=== PATIENT | male | born 1995 | race African-American/Black ===

== ENCOUNTER 2019-01-14 02:05 | Emergency (ER) | payer SELFPAY ==
[~2019-01-14] VITALS: Ht 188 cm; Wt 136.1 kg
[2019-01-14] MEDS ORDERED: KETOROLAC 30 MG/ML VIAL. IM ONE (02:30)
[2019-01-14] MEDS ORDERED: CYCL5TAB PO (02:40)
[2019-01-14] MEDS ORDERED: DICL50TA4 PO (02:40)
[2019-01-14 02:41] VITALS: BP 172/103
--- NOTE | 2019-01-14 04:48 | PHYS DOC ---
Past Medical History Past Medical History: No Pertinent History Past Surgical History: Tonsillectomy Alcohol Use: None Drug Use: None Adult General Chief Complaint Chief Complaint: LOWER BACK PAIN OR INJURY HPI HPI Patient is a 23 year old male who presents with chief complaint of low back pain. Onset 3 days ago no definite trauma but he does lift things for a living. More on the left no radiation down the legs no bowel or bladder incontinence no fever no abdominal pain Neck she went to a local hospital and waited in the emergency room waiting room for 4 hours and then left without being seen per his report and came here to be evaluated Review of Systems Review of Systems Constitutional: Denies fever or chills [] Eyes: Denies change in visual acuity, redness, or eye pain [] HENT: Denies nasal congestion or sore throat [] Cardiovascular: No additional information not addressed in HPI [] GI: Denies abdominal pain, nausea, vomiting, bloody stools or diarrhea [] All other systems were reviewed and found to be within normal limits, except as documented in this note. Current Medications Current Medications Current Medications Medications (Trade) Dose Ordered Sig/Krystal Start Time Stop Time Status Last Admin Dose Admin Ketorolac Tromethamine (Toradol 30mg Vial) 30 mg 1X ONCE 01/14/19 02:30 01/14/19 02:40 DC 01/14/19 02:37 30 MG Allergies Allergies Allergies Coded Allergies Type Severity Reaction Last Updated Verified No Known Drug Allergies 01/14/19 No Physical Exam Physical Exam Constitutional: Well developed, well nourished, no acute distress, non-toxic appearance. [] HENT: Normocephalic, atraumatic, bilateral external ears normal, oropharynx moist, no oral exudates, nose normal. [] Eyes: PERRLA, EOMI, conjunctiva normal, no discharge. [] Neck: Normal range of motion, no tenderness, supple, no stridor. [] Pulmonary: Normal respiratory effort no increased work of breathing no obvious chest wall trauma Abdomen: Bowel sounds normal, soft, no tenderness, no masses, no pulsatile masses. [] Skin: Warm, dry, no erythema, no rash. [] Back: Palpable spasm in the left mid back no focal midline tenderness Extremities: No tenderness, no cyanosis, no clubbing, ROM intact, no edema. [] Neurologic: Alert and oriented X 3, normal motor function, normal sensory function, no focal deficits noted. [] Psychologic: Affect normal, judgement normal, mood normal. [] Current Patient Data Vital Signs Vital Signs Date Time Temp Pulse Resp B/P (MAP) Pulse Ox O2 Delivery O2 Flow Rate FiO2 01/14/19 02:41 66 172/103 (126) 98 Room Air 01/14/19 02:08 98.3 17 98.3 EKG EKG [] Radiology/Procedures Radiology/Procedures [] Course & Med Decision Making Course & Med Decision Making Pertinent Labs and Imaging studies reviewed. (See chart for details) []Likely lumbosacral myofascial strain Try NSAIDs and muscle relaxants return precautions discussed no signs of cauda equina clinically Dragon Disclaimer Dragon Disclaimer This electronic medical record was generated, in whole or in part, using a voice recognition dictation system. Departure Departure Impression: Primary Impression: Back pain Disposition: HOME, SELF-CARE Condition: STABLE Referrals: NO PCP (PCP) Patient Instructions: Back Pain, Adult, [id number] Scripts Diclofenac Sodium (DICLOFENAC SODIUM) 50 Mg Tablet.dr 1 TAB PO BID, #30 TAB 0 Refills Prov: SARAH RIOS MD 01/14/19 Cyclobenzaprine Hcl (CYCLOBENZAPRINE HCL) 5 Mg Tablet 5 MG PO PRN TID PRN for PAIN, #10 TAB Prov: SARAH RIOS MD 01/14/19 SARAH RIOS MD January 14, 2019 04:48
== END 2019-01-14 03:00 | disposition home or self-care (01) ==
LOC: ER 02:05
DX: M54.5 Low back pain (principal); M54.6 Pain in thoracic spine; Z90.89 Acquired absence of other organs
CPT/HCPCS: 96372; 99283; J1885

== ENCOUNTER 2020-03-09 19:01 | Emergency (ER) | payer SELFPAY ==
[~2020-03-09] VITALS: Ht 188 cm; Wt 136.4 kg
[~2020-03-09 19:01] MED LIST: CYCL5TAB PO; DICL50TA4 PO
[2020-03-09 19:20] VITALS: BP 169/80
--- NOTE | 2020-03-09 19:35 | PHYS DOC ---
Past Medical History Past Medical History: No Pertinent History Past Surgical History: Tonsillectomy Smoking Status: Never Smoker Alcohol Use: None Drug Use: None Laceration Repair Lac Repair Indication: [] Procedure: The patient was placed in the appropriate position and anesthesia around the [LAC WAS/WERE] [ANESTHESIA]. The area was then [CLEANSED/DEBRIDED]. The laceration was [LAC CLOSURE]. [ADDITIONAL LACS] The wound area was then dressed with [WOUND COVERING]. Total repaired wound length: [TOTAL REPAIR LENGTH]. Other Items: [OTHER ITEMS] The patient tolerated the procedure [TOLERATED]. Complications: [COMPLICATIONS]. General Adult EDM: Chief Complaint: LACERATION/AVULSION HPI: HPI: Patient is a 25 year old male who presents laceration to her right hand. Patient states that he had punched a window that had a screen behind. States this happened approximately 1:00 this afternoon. States he thinks his last tetanus shot was approximately 6 or 7 years ago, but he is not sure. Denies any discomfort in hand, other than lacerations. Denies discomfort in wrist, digits, shoulder Review of Systems: Review of Systems: Constitutional: Denies fever or chills. [] Cardiovascular: Denies chest pain or edema. [] GI: Denies abdominal pain, nausea, vomiting, bloody stools or diarrhea. [] : Denies dysuria. [] Musculoskeletal: Denies back pain or joint pain. [] Integument: Denies rash. Reports lacerations to right hand [] Neurologic: Denies focal weakness or sensory changes. [] Psychiatric: Denies depression or anxiety. [] Heart Score: Risk Factors: Risk Factors: DM, Current or recent (<one month) smoker, HTN, HLP, family history of CAD, obesity. Risk Scores: Score 0 - 3: 2.5% MACE over next 6 weeks - Discharge Home Score 4 - 6: 20.3% MACE over next 6 weeks - Admit for Clinical Observation Score 7 - 10: 72.7% MACE over next 6 weeks - Early Invasive Strategies Allergies: Allergies: Allergies Coded Allergies Type Severity Reaction Last Updated Verified No Known Drug Allergies 01/14/19 No Physical Exam: PE: Constitutional: Well developed, well nourished, no acute distress, non-toxic appearance. [] Cardiovascular:Heart rate regular rhythm, no murmur [] Lungs & Thorax: Bilateral breath sounds clear to auscultation [] Abdomen: Bowel sounds normal, soft, no tenderness, no masses, no pulsatile masses. [] Skin: Warm, dry, no erythema, no rash. 2 cm laceration noted to PIP of right first digit, abrasion noted over knuckle of second digit [] Back: No tenderness, no CVA tenderness. [] Extremities: No tenderness, no cyanosis, no clubbing, ROM intact, no edema. Full range of motion to extremity and digits [] Neurologic: Alert and oriented X 3, normal motor function, normal sensory function, no focal deficits noted. [] Psychologic: Affect normal, judgement normal, mood normal. [] EKG: EKG: [] Radiology/Procedures: Radiology/Procedures: [] Course & Med Decision Making: Course & Med Decision Making Pertinent Labs and Imaging studies reviewed. (See chart for details) [Discussed wound care, discussed follow-up for suture removal. Tylenol as needed for discomfort. Tetanus shot updated today. Patient to return in 7 days for suture removal here or primary care office] Sophia Disclaimer: Sophia Disclaimer: This electronic medical record was generated, in whole or in part, using a voice recognition dictation system. Departure Departure Impression: Primary Impression: Laceration of right hand Qualified Codes: S61.411A - Laceration without foreign body of right hand, initial encounter Disposition: 01 HOME, SELF-CARE Condition: GOOD Referrals: NO PCP (PCP) Patient Instructions: Laceration Care, Adult, [id number] Additional Instructions: As we discussed, return here or to your primary care provider in 7 days to have your stitches removed. Keep an eye on your wound to make sure that there are no signs of infection, including redness, drainage, pus, tenderness. If you notice any of these, follow-up with your primary care provider promptly. Justicifation of Admission Dx: Justifications for Admission: Justification of Admission Dx: N/A Laceration Repair Lac Repair Indication: laceration[] Procedure: The patient was placed in the appropriate position and infiltrated around the wounds with 2 ml 1% xylocaine without Epi]. The area was then [CLEANSED]. The laceration to the first digit was closed with (4) 4/0 nylon simple interrupted sutures, the 1 cm laceration over the base of the 2nd knuckle was closed with (2) 4/0 nylon simple interrupted sutures. Total repaired wound length: 3 cm. Other Items: [OTHER ITEMS] The patient tolerated the procedure well Complications: [none]. REUBEN BEAVER APRN Mar 09, 2020 19:35
[2020-03-09] MEDS ORDERED: DIPH,PERTUSS(ACELL),TET VAC/PF 0.5 ML SYRINGE. VAX IM ONE (19:45)
[2020-03-09] MEDS ORDERED: LIDOCAINE 1% PF 2 ML VIAL. INJ ONE (19:45)
== END 2020-03-09 21:00 | disposition home or self-care (01) ==
LOC: ER 19:01
DX: S61.411A Laceration without foreign body of right hand, initial encounter (principal); Z90.89 Acquired absence of other organs; Y29.XXXA Contact with blunt object, undetermined intent, initial encounter; Y93.89 Activity, other specified; Y92.89 Other specified places as the place of occurrence of the external cause; Y99.8 Other external cause status
CPT/HCPCS: 12002; 99283; J3490

== ENCOUNTER 2021-04-27 09:15 | Emergency (ER) | payer SELFPAY ==
[~2021-04-27] VITALS: Ht 188 cm; Wt 136.6 kg
[2021-04-27 09:26] VITALS: BP 139/90
[2021-04-27] MEDS ORDERED: oxyCODONE/APAP 10/325 1 TAB TABLET PO ONE (09:45)
[2021-04-27] MEDS ORDERED: CLINDAMYCIN HCL 150 MG CAPSULE. PO ONE (09:45)
[2021-04-27] MEDS ORDERED: CLIN150C16 PO (09:56)
--- NOTE | 2021-04-27 09:57 | PHYS DOC ---
Past Medical History Past Medical History: No Pertinent History (JAVAN GONZALES APRN) Past Surgical History: No Surgical History, Tonsillectomy (JAVAN GONZALES APRN) Smoking Status: Never Smoker Alcohol Use: None Drug Use: None (JAVAN GONZALES APRN) General Adult EDM: Chief Complaint: DENTAL PROBLEM HPI: HPI: Patient is a 26 year old male who presents emergency department complaining of an ongoing dental abscess that is not getting any better with treatment that was started 3 days ago. Patient reports he was seen at emergency department, started on amoxicillin for a dental abscess. Was told to see a dentist. Patient reports his pain is not getting any better, patient reports the swelling or infection is not getting any better. Patient reports he was told to come to the emergency department if not getting better. Patient denies swelling of the throat, swelling of the tongue, airway difficulties, denies throat pain, denies nasal chest congestion. Patient denies ear pain or headaches. Patient denies pain to his neck. Patient denies numbness or tingling to his tongue mouth or face. Patient reports a 10 out of 10 pain, reports has not taken any [id number] pain relief medications today patient states he was not told to see a dentist. Patient does not have a regular dentist that he sees. Patient denies any other physical complaints or physical concerns. (JAVAN GONZALES APRN) Review of Systems: Review of Systems: 14 body systems of review of systems have been reviewed. See HPI for pertinent positives and negative responses, otherwise all other systems are negative, nonpertinent or noncontributory. Constitutional: Negative except as outlined in HPI above. Skin: Negative except as outlined in HPI above. Eyes: Negative except as outlined in HPI above. HENT: Negative except as outlined in HPI above. Respiratory: Negative except as outlined in HPI above. Cardiovascular: Negative except as outlined in HPI above. GI: Negative except as outlined in HPI above. : Negative except as outlined in HPI above. Musculoskeletal: Negative except as outlined in HPI above. Integument: Negative except as outlined in HPI above. Neurologic: Negative except as outlined in HPI above. Endocrine: Negative except as outlined in HPI above. Lymphatic: Negative except as outlined in HPI above. Psychiatric: Negative except as outlined in HPI above. (JAVAN GONZALES APRN) Heart Score: C/O Chest Pain: No Risk Factors: Risk Factors: DM, Current or recent (<one month) smoker, HTN, HLP, family history of CAD, obesity. Risk Scores: Score 0 - 3: 2.5% MACE over next 6 weeks - Discharge Home Score 4 - 6: 20.3% MACE over next 6 weeks - Admit for Clinical Observation Score 7 - 10: 72.7% MACE over next 6 weeks - Early Invasive Strategies (JAVAN GONZALES APRN) Allergies: Allergies: Allergies Coded Allergies Type Severity Reaction Last Updated Verified No Known Drug Allergies 01/14/19 No (JAVAN GONZALES APRN) Physical Exam: PE: Constitutional: Well developed, well nourished, no acute distress, non-toxic appearance. 26-year-old male in no apparent distress. HENT: Normocephalic, atraumatic. Oropharynx moist, nonerythematous, no uvular edema, no peritonsillar edema, no laryngeal edema. Patient speaking in normal voice tones, no drooling, no postnasal drip, no trismus. No malocclusion. Marked dental caries, periapical abscess noted left most rear molar. No lymphadenopathy of the head or neck appreciated, bilateral TMs within normal limits. No facial swelling appreciated. Eyes: Conjunctiva normal, no discharge. Neck: Normal range of motion, no stridor. Cardiovascular: No cyanosis appreciated, distal cap refill less than 2 seconds. Lungs & Thorax: Patient is in no respiratory distress, no audible adventitious lung sounds appreciated. Abdomen: Nontender, no abnormalities noted. Skin: Warm, dry, no erythema, no rash. Back: No tenderness, no deformities. Extremities: No tenderness, no cyanosis, no clubbing, ROM intact, no edema. Neurologic: Alert and oriented X 3, normal motor function, normal sensory function, no focal deficits noted. Psychologic: Affect normal, judgement normal, mood normal. (JAVAN GONZALES APRN) Current Patient Data: Vital Signs: Vital Signs Date Time Temp Pulse Resp B/P (MAP) Pulse Ox O2 Delivery O2 Flow Rate FiO2 04/27/21 09:26 97.8 58 18 139/90 (109) 98 Room Air 97.8 (JAVAN GONZALES APRN) EKG: EKG: [] (JAVAN GONZALES APRN) Radiology/Procedures: Radiology/Procedures: [] (JAVAN GONZALES APRN) Course & Med Decision Making: Course & Med Decision Making Pertinent Labs and Imaging studies reviewed. (See chart for details) 26-year-old male, vital signs reviewed, presents emergency department for ongoing dental pain and infectious process. Physical examination consistent with periapical abscess. Patient is on 500 mg amoxicillin twice a day, will change to clindamycin 450 3 times daily. Give oral pain medication today in the emergency department, discussed with patient stopping his amoxicillin regimen, starting new medication clindamycin, discussed side effects and medication regimen, discussed strict follow-up with dental specialty. Patient amenable to emergency department DC planning. Discussed with the patient all findings and diagnostic testing as well as the need to follow-up with their primary care provider for further evaluation and treatment or return to the ED if any new or worsening symptoms. Strict return precautions were also discussed at length, the patient voiced understanding and agreement with the discharge planning. The patient was nontoxic in appearance, in no apparent distress, and hemodynamically stable at the time of disposition. (JAVAN GONZALES APRN) Course & Med Decision Making I have participated in the care of this patient and I have reviewed and agree with all pertinent clinical information above including history, exam, and recommendations. Deven Chi DO (DEVEN CHI DO) Sophia Disclaimer: Sophia Disclaimer: This electronic medical record was generated, in whole or in part, using a voice recognition dictation system. (JAVAN GONZALES APRN) Departure Departure Impression: Primary Impression: Periapical abscess Additional Impression: Dental caries Disposition: HOME / SELF CARE / HOMELESS Condition: GOOD Referrals: NO PCP (PCP) Additional Instructions: You were seen today in the emergency department for a dental infection. As we discussed, please stop taking your amoxicillin and start with the medication clindamycin. You were given your first dose today in the emergency department. I have sent your prescription to the [facility] on [address] as you requested. Please take 3 times a day until completed. Please try warm salt water swish and spit to assist with dental pain and healing process. As we discussed at length, please follow-up with the dentist soon. You have been provided with a list of dental clinics, please choose 1 and make an appointment soon. Thank you for visiting our Emergency Department. It was a pleasure taking care of you today in the emergency department and we appreciate you trusting us with your care. If any additional problems come up don't hesitate to return to visit us. Please follow up with your primary care provider so they can plan additional care if needed and know about the problem that you had. If symptoms worsen come back to the Emergency Department. Any concerning symptoms that start such as chest pain, shortness of air, weakness or numbness on one side of the body, running high fevers or any other concerning symptoms return to the ER. EMERGENCY DEPARTMENT GENERAL DISCHARGE INSTRUCTIONS Thank you for coming to [facility] Emergency Department (ED) today and trusting us with you care. We trust that you had a positive experience in our Emergency Department. If you wish to speak to the department management, you may call the Director at [phone]. YOUR FOLLOW UP INSTRUCTIONS ARE FOLLOWS: 1. Do you have a private Doctor? If you do not have a private doctor, please ask for a resource list of physicians or clinics that may be able to assist you with follow up care. 2. The Emergency Physicain has interpreted your x-rays. The X-Ray specialist will also review them. If there is a change in the findings, you will be notified in 48 hours when at all possible. 3. A lab test or culture has been done, your results will be reviewed and you will be notified if you need a change in treatment. ADDITIONAL INSTRUCTIONS AND INFORMATION: 1. Your care today has been supervised by a physician who is specially trained in emergency care. Many problems require more than one evaluation for a complete diagnosis and treatment. We recommend that you schedule your follow up appointment as recommended to ensure complete treatment of you illness or injury. If you are unable to obtain follow up care and continue to have a problem, or if your condition worsens, we recommend that you return to the ED. 2. We are not able to safely determine your condition over the phone nor are we able to give sound medical advice over the phone. For these safety reasons, if you call for medical advice we will ask you to come to the ED for further evaluation. 3. If you have any questions regarding these discharge instructions please call the ED at [phone]. SAFETY INFORMATION: In the interest of safety, wellness, and injury prevention; we encourage you to wear your sealbelt, if you smoke; quite smoking, and we encourage family to use a protective helmet for bicycling and other sporting events that present an increased risk for head injury. IF YOUR SYMPTOMS WORSEN OR NEW SYMPTOMS DEVELOP, OR YOU HAVE CONCERNS ABOUT YOUR CONDITION; OR IF YOUR CONDITION WORSENS WHILE YOU ARE WAITING FOR YOUR FOLLOW UP APPOINTMENT; EITHER CONTACT YOUR PRIMARY CARE DOCTOR, THE PHYSICIAN WHOSE NAME AND NUMBER YOU WERE GIVEN, OR RETURN TO THE ED IMMEDIATELY. Scripts Clindamycin Hcl (CLINDAMYCIN HCL) 150 Mg Capsule 450 MG PO TID for dental infection for 14 Days, #126 CAP 0 Refills Please take 3 tablets 3 times a day for the next 14 days. Prov: JAVAN GONZALES APRN 04/27/21 JAVAN GONZALES APRN Apr 27, 2021 09:57 DEVEN CHI DO Apr 27, 2021 16:23
== END 2021-04-27 10:12 | disposition home or self-care (01) ==
LOC: ER 09:15
DX: K04.7 Periapical abscess without sinus (principal); K02.9 Dental caries, unspecified
CPT/HCPCS: 99283